=== PATIENT | male | born 1960 | race Caucasian/White ===

== ENCOUNTER 2017-10-24 10:32 | Emergency (ER) | payer OTHER ==
[~2017-10-24] VITALS: Ht 170.2 cm; Wt 57.1 kg
[~2017-10-24 10:32] MED LIST: ACCUNEB SO1.25 MG/1 INH; ACETAMINOPHEN-1 EAC1 PO; AFRIN15 ML NS; ALBUTEROL; ALBUTEROL INH; ALBUTEROL2.5 MG/0.1 IH; ALLERGEN EAR DR15 M1 OT; AMOXICILLIN 50500 MG PO; AZITHROMYCIN 2250 MG PO; BACTRIM DS TAB1 EACH PO; COMBIVENT INH; DOXYCYCLINE 10100 MG PO; DUONEB 2.5-0.5 M3 ML INH; FIORICET 50-301 EACH PO; FLEXERIL PO; FLONASE 0.05%50 MCG NASAL; HYDROCODONE-AP1 EAC6 PO; HYDROCODONE-APA1 TA1 PO; IBUPROFEN 200200 M1 PO; IBUPROFEN 800800 M1 PO; IBUPROFEN 800800 MG PO; LEVAQUIN 500 M500 MG PO; MEDROLDOSEPACK PO; MINOCIN100 MG PO; PREDNISONE 10 M10 M1 PO; PREDNISONE 10 M10 MG PO; PREDNISONE 20 M20 MG PO; PREDNISONE50 MG PO; PROAIR HFA8.5 GM IH; PROAIR HFA8.5 GM INH; SYNTHROID75 MCG PO; VENTOLIN HFA 1818 GM INH; VICODIN 5-3001 EACH PO; VICODIN 5-5001 EACH PO; ZOFRAN ODT4 MG PO; ZPAK PO
[2017-10-24 11:08] LABS: INFLUENZA A ANTIGEN None Detected (None Detect); INFLUENZA B ANTIGEN None Detected (None Detect)
[2017-10-24] MEDS ORDERED: DOXYCYCLINE 10100 MG PO (11:54)
[2017-10-24] MEDS ORDERED: PREDNISONE 20 M20 MG PO (11:54)
[2017-10-24] MEDS ORDERED: DUONEB 2.5-0.5 M3 ML INH (11:54)
[2017-10-24 12:01] VITALS: BP 131/65
== END 2017-10-24 12:02 | disposition home or self-care (01) ==
LOC: M.ERS 10:32
PROVIDERS: Physician Assistant
DX: J44.1 Chronic obstructive pulmonary disease with (acute) exacerbation (principal); J20.9 Acute bronchitis, unspecified; E03.9 Hypothyroidism, unspecified; J43.9 Emphysema, unspecified; F10.99 Alcohol use, unspecified with unspecified alcohol-induced disorder; Z85.89 Personal history of malignant neoplasm of other organs and systems; Z98.890 Other specified postprocedural states; Z88.1 Allergy status to other antibiotic agents; Z88.0 Allergy status to penicillin; Z91.030 Bee allergy status; Z88.8 Allergy status to other drugs, medicaments and biological substances

== ENCOUNTER 2018-01-13 22:25 | Emergency (ER) | payer OTHER ==
[~2018-01-13] VITALS: Ht 170.2 cm; Wt 57.6 kg
[2018-01-13 23:03] LABS: HEMATOCRIT 38.4 % (42.0-52.0); HEMOGLOBIN 12.7 gm/dL (14.0-18.0); MCH 29.7 pg (26.0-34.0); MCV 89.9 fL (80.0-100.0); MPV 8.7 fl. (7.2-11.1); NUCLEATED RBCS 0 /100WBC; PLATELET COUNT* 280 thou/uL (150-400); RBC 4.27 mil/uL (4.50-6.00); RDW-CV 15.3 % (10.5-14.5); WBC 9.3 thou/uL (4.0-11.0)
[2018-01-13 23:07] LABS: ANION GAP 12 mmol/L (7-16); BUN 8 mg/dL (7-18); CALCIUM 9.1 mg/dL (8.5-10.1); CHLORIDE 103 mmol/L (98-107); CO2 25 mmol/L (21-32); CREATININE 0.7 mg/dL (0.6-1.3); GLUCOSE 80 mg/dL (70-99); POTASSIUM 3.8 mmol/L (3.5-5.1); SODIUM 140 mmol/L (136-145)
[2018-01-13 23:14] LABS: ALBUMIN 3.5 g/dL (3.4-5.0); ALKALINE PHOSPHATASE 64 U/L (46-116); LIPASE 132 U/L (73-393); SGOT 26 U/L (15-37); SGPT 32 U/L (30-65); TOTAL BILIRUBIN 0.4 mg/dL (<0.1-1.0); TOTAL PROTEIN 6.9 g/dL (6.4-8.2); TROPONIN-I LEVEL <0.06 ng/mL (<0.06)
[2018-01-13 23:47] LABS: ABSOLUTE BASOPHILS 0.1 thou/uL (0.0-0.2); ABSOLUTE LYMPHOCYTES 1.7 thou/uL (0.8-5.3); ABSOLUTE MONOCYTES 0.8 thou/uL (0.0-1.2); ABSOLUTE NEUTROPHILS 5.7 thou/uL (1.6-8.1); ATYPICAL LYMPHS 1 %; CLUMPED PLTS OCCASIONAL; PLATELET ESTIMATE ADEQUATE
[2018-01-14] MEDS ORDERED: ZPAK PO (00:09)
[2018-01-14] MEDS ORDERED: PREDNISONE50 MG PO (00:09)
[2018-01-14 00:24] VITALS: BP 130/59
--- NOTE | 2018-01-14 14:50 | EKG ---
[place] [address] ELECTROCARDIOGRAM REPORT Name: JOSE NORRIS [id number] Admission: 01/13/18 Attend Phys: Discharge: 01/14/18 Date of : 60 Report #: [id number] THIS REPORT FOR: //name// [facility] ED Test Date: 2018-01-13 Test Time: 22:34:06 Pat Name: JOSE NORRIS Department: Room: Gender: M Procurement Buyer: IVANNA : 1960 Requested By: Efraín Bloom Order Number: [id number] MD: Monty Jean-Baptiste Measurements Intervals [place] Rate: 66 P: 73 ID: [id number] QRS: 34 QRSD: 103 T: 41 QT: 411 QTc: 431 Interpretive Statements Sinus rhythm RSR' in V1 or V2, right VCD Electronically Signed On 01-14-2018 14:50:07 CDT by Monty Jean-Baptiste [email or web address] <ELECTRONICALLY SIGNED> By: Monty Jean-Baptiste MD, [facility] 01/14/18 1450 [id number] Monty Jean-Baptiste MD, FACC /EPI
== END 2018-01-14 00:25 | disposition home or self-care (01) ==
LOC: M.ERS 22:25
PROVIDERS: Emergency Medicine Emergency Medical Services
DX: J44.1 Chronic obstructive pulmonary disease with (acute) exacerbation (principal); E03.9 Hypothyroidism, unspecified

== ENCOUNTER 2019-01-04 21:05 | Emergency (ER) | payer OTHER ==
[~2019-01-04] VITALS: Ht 170.2 cm; Wt 54.9 kg
[2019-01-04 22:30] VITALS: BP 122/60
== END 2019-01-04 22:30 | disposition home or self-care (01) ==
LOC: M.ERS 21:05
DX: S62.630A Displaced fracture of distal phalanx of right index finger, initial encounter for closed fracture (principal); M54.2 Cervicalgia; E03.9 Hypothyroidism, unspecified; J44.9 Chronic obstructive pulmonary disease, unspecified; Z85.89 Personal history of malignant neoplasm of other organs and systems; Z88.0 Allergy status to penicillin; Z88.1 Allergy status to other antibiotic agents; Z88.8 Allergy status to other drugs, medicaments and biological substances; X58.XXXA Exposure to other specified factors, initial encounter; Y93.89 Activity, other specified; Y92.89 Other specified places as the place of occurrence of the external cause; Y99.8 Other external cause status

== ENCOUNTER 2019-01-25 17:54 | Emergency (ER) | payer OTHER ==
[~2019-01-25] VITALS: Ht 170.2 cm; Wt 55.3 kg
[2019-01-25 17:57] VITALS: BP 109/53
[2019-01-25] MEDS ORDERED: CLEOCIN HCL150 MG PO (18:10)
[2019-01-25] MEDS ORDERED: TRAMADOL 50 MG50 MG PO (18:10)
== END 2019-01-25 18:18 | disposition home or self-care (01) ==
LOC: M.ERS 17:54
DX: H66.92 Otitis media, unspecified, left ear (principal); E03.9 Hypothyroidism, unspecified; J44.9 Chronic obstructive pulmonary disease, unspecified; G89.29 Other chronic pain; M54.5 Low back pain; Z88.8 Allergy status to other drugs, medicaments and biological substances; Z88.1 Allergy status to other antibiotic agents; Z88.0 Allergy status to penicillin; Z91.030 Bee allergy status; Z85.818 Personal history of malignant neoplasm of other sites of lip, oral cavity, and pharynx

== ENCOUNTER 2019-03-11 16:23 | Emergency (ER) | payer OTHER ==
[~2019-03-11] VITALS: Ht 170.2 cm; Wt 54.0 kg
[~2019-03-11 16:23] MED LIST changes: +CLEOCIN HCL150 MG PO; +TRAMADOL 50 MG50 MG PO
[2019-03-11] MEDS ORDERED: MEDROLDOSEPACK PO (17:38)
[2019-03-11] MEDS ORDERED: IPRAT-ALBUT 0.5-3 ML INH (17:38)
[2019-03-11 17:54] VITALS: BP 113/70
== END 2019-03-11 17:54 | disposition home or self-care (01) ==
LOC: M.ERS 16:23
DX: J44.1 Chronic obstructive pulmonary disease with (acute) exacerbation (principal); E03.9 Hypothyroidism, unspecified; M54.5 Low back pain; G89.29 Other chronic pain; Z85.818 Personal history of malignant neoplasm of other sites of lip, oral cavity, and pharynx; Z88.0 Allergy status to penicillin; Z88.6 Allergy status to analgesic agent; Z88.8 Allergy status to other drugs, medicaments and biological substances

== ENCOUNTER 2019-08-31 15:38 | Emergency (ER) | payer OTHER ==
[~2019-08-31] VITALS: Ht 170.2 cm; Wt 63.5 kg
[~2019-08-31 15:38] MED LIST changes: +IPRAT-ALBUT 0.5-3 ML INH
[2019-08-31] MEDS ORDERED: MEDROLDOSEPACK PO (16:33)
[2019-08-31 16:42] VITALS: BP 136/84
== END 2019-08-31 16:42 | disposition home or self-care (01) ==
LOC: M.ERS 15:38
DX: M25.542 Pain in joints of left hand (principal); M25.541 Pain in joints of right hand; E03.9 Hypothyroidism, unspecified; J44.9 Chronic obstructive pulmonary disease, unspecified; Z85.89 Personal history of malignant neoplasm of other organs and systems; M79.89 Other specified soft tissue disorders; Z88.0 Allergy status to penicillin; Z88.1 Allergy status to other antibiotic agents; Z88.8 Allergy status to other drugs, medicaments and biological substances; Z88.6 Allergy status to analgesic agent